=== PATIENT | male | born 1980 | race Caucasian/White ===

== ENCOUNTER 2016-09-29 15:57 | Emergency (ER) | payer BC ==
[~2016-09-29] VITALS: Ht 182.9 cm; Wt 125.6 kg
[~2016-09-29 15:57] MED LIST: PEPCID20 MG PO; PROMETHAZINE HC25 M1 PO
[2016-09-29 16:45] LABS: HEMATOCRIT 46.7 % (38.0-50.0); MCH 31.1 PG (29.0-34.0); MCHC 34.3 G/DL (30.0-36.0); MCV 90.9 FL (86-99); MEAN PLAT.VOLUME 11.5 uM^3 (9.0-12.4); PLATELET COUNT 245 K/uL (156-360); RBC DIS.WIDTH-CV 12.5 % (11.8-14.6); RBC DIS.WIDTH-SD 41.7 % (39-53); RED BLOOD COUNT 5.14 M/uL (4.00-5.50); WHITE BLOOD COUNT 7.4 K/uL (4.1-10.2)
[2016-09-29 16:54] LABS: CHLORIDE 105 mEq/L (99-109); POTASSIUM 4.2 mEq/L (3.7-5.4); SODIUM 139 mEq/L (136-147)
[2016-09-29 16:55] LABS: GLUCOSE 94 mg/dL (70-99)
[2016-09-29 16:57] LABS: ANION GAP 9 MEQ/L (2-14)
[2016-09-29 16:59] LABS: GFR ESTIMATE (CALCULATED) > 59 mL/min/
[2016-09-29 17:00] LABS: UREA NITROGEN (BUN) 19 mg/dL (9-23)
[2016-09-29 17:38] LABS: ADD MIUA? NO; BILIRUBIN NEGATIVE; BLOOD NEGATIVE; COLOR YELLOW ((YELLOW)); GLUCOSE (STRIP) NEGATIVE; KETONES NEGATIVE; LEUKOCYTES NEGATIVE; NITRITE NEGATIVE; PROTEIN (STRIP) NEGATIVE; SPECIFIC GRAVITY 1.015 (1.000-1.030); UCUL ADDED? NO; UROBILINOGEN 0.2 MG/DL (0.2-1.0)
[2016-09-29 18:25] LABS: TOTAL BILIRUBIN 0.5 mg/dL (0.0-1.0)
[2016-09-29 18:27] LABS: ALKALINE PHOSPHATASE 61 IU/L (3-129)
[2016-09-29 18:29] LABS: DIRECT BILIRUBIN 0.2 mg/dL (0.0-0.3)
[2016-09-29 18:30] LABS: LIPASE 25 U/L (1.0-51.0)
[2016-09-29 20:12] VITALS: BP 138/71
== END 2016-09-29 20:12 | disposition home or self-care (01) ==
LOC: EME 15:57 → EXP 15:57
DX: N13.1 Hydronephrosis with ureteral stricture, not elsewhere classified (principal); Z87.891 Personal history of nicotine dependence
CPT/HCPCS: 74176; 80048; 80076; 81003; 83690; 85027; 99281; 99284

== ENCOUNTER → 2016-10-14 | Outpatient (CLI) | payer BC | END | disposition home or self-care (01) | LOC: NUC 11:00 | DX: R93.5 Abnormal findings on diagnostic imaging of other abdominal regions, including retroperitoneum (principal) | CPT/HCPCS: 78709; A9562 ==